=== PATIENT | female | born 1930 | race Caucasian/White ===

== ENCOUNTER → 2018-03-15 | Outpatient (CLI) | payer MEDICARE, BC ==
--- NOTE | 2018-03-16 00:05 | MR ---
EXAMINATION TYPE: MR brain/orbits wo/w con DATE OF EXAM: 03/15/2018 COMPARISON: NONE HISTORY: Retinal artery branch occlusion, Hit in lt eye and head with hockey puck x25 years ago, Rece nt abnormal eye exam TECHNIQUE: Multiplanar, multisequence images of the brain and brainstem is performed without and with IV contras t, utilizing 7 mL intravenous Gadavist . FINDINGS: There is mild cerebral cortical atrophy appropriate for age. There is no mass effect nor mi dline shift. There is no sign of intracranial hemorrhage. There is some patchy increased signal in th e white matter of the occipital lobes on the T2 images. There is some patchy increased signal on FLAI R images in the periventricular white matter numerous foci that measure up to 7 mm. The total number is approximately 25. The brainstem is intact. Cerebellum appears normal. There is mucosal thickening in the left maxillary sinus. The globes are symmetric. There is no evidence of retro-orbital mass. Extraocular muscles are fairly symmetric. There is a large empty sella turcica. I see no pathologic enhancement. Optic chiasm appear s normal. IMPRESSION: Mild atrophy appropriate for age. White matter signal changes are nonspecific and could r elate to demyelinating disease or chronic small vessel ischemia. Ischemic changes extend almost into the cortex of the parietal lobes bilaterally. Left maxillary sinusitis. No focal orbital abnormality.
== END | disposition home or self-care (01) ==
LOC: RADMRIMAIN 17:24
PROVIDERS: ATTEND Family Medicine
DX: G31.9 Degenerative disease of nervous system, unspecified (principal); I67.82 Cerebral ischemia; J32.0 Chronic maxillary sinusitis
CPT/HCPCS: 82565; 70543; 70553; 36415; A9581